=== PATIENT | female | born 1995 | race Two or more races ===

== ENCOUNTER 2024-02-11 23:28 | Emergency (ER) | payer MEDICAID, OTHER ==
[~2024-02-11] VITALS: Ht 162.6 cm; Wt 80.0 kg
[2024-02-11 23:31] VITALS: BP 115/81; PULSE 92; RESP 18; O2SAT 98
[2024-02-11] MEDS ORDERED: SODIUM CHLORIDE 0.9% 1,000 ML IV ONE ×2 (23:45)
[2024-02-11] MEDS ORDERED: MORPHINE SULFATE 4 MG/ML SYR/VIAL IV ONE (23:45)
[2024-02-11] MEDS ORDERED: ONDANSETRON HCL 4 MG/2 ML VIAL IV ONE (23:45)
[2024-02-11 23:51] LABS: Basophils # (auto) 0 10 ^3/uL (0-0.2); Basophils % (auto) 0.3 % (0.0-2.0); Eosinophils # (auto) 0.1 10 ^3/uL (0-0.8); Monocytes # (auto) 0.6 10 ^3/uL (0-1.3); Monocytes % (auto) 4.6 % (0.0-12.0); Neutrophils # (auto) 10.8 10 ^3/uL (1.6-8.6); Red Blood Cells 3.51 10^6/uL (4.0-5.20)
[2024-02-11 23:53] LABS: Eosinophils % (auto) 0.8 % (0.0-7.0); Hematocrit 28.2 % (36.0-46.0); Lymphocytes # (auto) 0.9 10 ^3/uL (0.4-5.4); Lymphocytes % (auto) 6.9 % (10.0-50.0); Mean Corpuscular Hemoglobin 25.5 pg (28.0-32.0); Mean Corpuscular Hgb Conc. 31.8 g/dL (32.0-36.0); Mean Corpuscular Volume 80.3 fL (80.0-100.0); Neutrophils % (auto) 87.4 % (37.0-80.0); Red Cell Distribution Width 15.3 % (11.8-14.3); White Blood Cell 12.4 10^3/uL (4.4-10.8)
[2024-02-12] LABS: Chloride 107 mmol/L (98-107); Potassium 3.7 mmol/L (3.5-5.1); Sodium 135 mmol/L (136-145)
[2024-02-12 00:01] LABS: Anion Gap 4 (5-15); Carbon Dioxide 24 mmol/L (20-30)
[2024-02-12 00:06] LABS: BUN/Creatinine Ratio 18.2 (10.0-20.0); Blood Urea Nitrogen 10 mg/dL (9-23); Glucose 95 mg/dL (74-106)
== END 2024-02-12 00:28 | disposition left against medical advice (07) ==
LOC: EDBD 23:28 → ER 23:28
DX: R10.11 Right upper quadrant pain (principal); R10.2 Pelvic and perineal pain; R55 Syncope and collapse; R42 Dizziness and giddiness
CPT/HCPCS: 36415; 80048; 84702; 85025